=== PATIENT | male | born 1995 | race Caucasian/White ===

== ENCOUNTER 2017-03-23 15:18 | Emergency (ER) | payer MEDICAID ==
--- NOTE | 2017-03-23 15:38 | ER Document Report ---
ED Psych Disorder / Suicide - General Chief Complaint: Psych Problem Stated Complaint: SUICIDAL IDEATION Time Seen by Provider: 03/23/17 15:38 Notes: This is a 21-year-old male comes in by EMS at the request of Police Department for evaluation of self-harm. Patient states that he gets angry. Gets in arguments with his mom. Wants to harm himself at times. Has cut himself in the past. States that the arguments with his mother is something that he is always dealt with. Patient is unemployed. Lives at home with his mother. Has a girlfriend. Not on any medications. Smokes marijuana on a regular basis. Denies any alcohol or other drug abuse. Denies any harm to himself today. Does not endorse s.i. or h.i. TRAVEL OUTSIDE OF THE [place] IN LAST 30 DAYS: No - HPI Patient complains to provider of: Agitated, Self injury. No: Suicidal ideation , Suicidal plan, Suicidal attempt Onset: This afternoon Onset was: Gradual Quality of pain: No pain Severity: Mild Pain Level: 0 Suicide Risk Factors: Depressed - Related Data Allergies/Adverse Reactions: No Known Allergies Allergy (Verified 03/23/17 15:32) Home Medications: Current Home Medications No Home Medications 03/23/17 [History] Past Medical History - General Information source: Patient - Social History Smoking Status: Never Smoker Frequency of alcohol use: None Drug Abuse: Marijuana Lives with: Family Family History: Reviewed & Not Pertinent, Malignancy Psychiatric Medical History: Reports: Hx Attention Deficit Hyperactivity Disorder, Hx Bipolar Disorder - Immunizations Immunizations up to date: Yes Hx Diphtheria, Pertussis, Tetanus Vaccination: Yes Review of Systems - Review of Systems Constitutional: No symptoms reported EENT: No symptoms reported Cardiovascular: No symptoms reported Respiratory: No symptoms reported Gastrointestinal: No symptoms reported Genitourinary: No symptoms reported Male Genitourinary: No symptoms reported Musculoskeletal: No symptoms reported Skin: No symptoms reported Hematologic/Lymphatic: No symptoms reported Neurological/Psychological: No symptoms reported Physical Exam - Vital signs Vitals: Temp Pulse Resp BP Pulse Ox 99.2 F 58 L 16 124/66 97 03/23/17 15:24 03/23/17 15:24 03/23/17 15:24 03/23/17 15:24 03/23/17 15:24 Interpretation: Normal - General General appearance: Appears well, Alert - HEENT Head: Normocephalic, Atraumatic Eyes: Normal Pupils: PERRL - Respiratory Respiratory status: No respiratory distress Chest status: Nontender Breath sounds: Normal Chest palpation: Normal - Cardiovascular Rhythm: Regular Heart sounds: Normal auscultation Murmur: No - Abdominal Inspection: Normal Distension: No distension Bowel sounds: Normal Tenderness: Nontender Organomegaly: No organomegaly - Back Back: Normal, Nontender - Extremities General upper extremity: Normal inspection, Nontender, Normal color, Normal ROM , Normal temperature General lower extremity: Normal inspection, Nontender, Normal color, Normal ROM , Normal temperature, Normal weight bearing. No: Rajan's sign - Neurological Neuro grossly intact: Yes Cognition: Normal Orientation: AAOx4 Kendal Coma Scale Eye Opening: Spontaneous Kendal Coma Scale Verbal: Oriented Kendal Coma Scale Motor: Obeys Commands Kendal Coma Scale Total: 15 Speech: Normal Motor strength normal: LUE, RUE, LLE, RLE Sensory: Normal - Psychological Associated symptoms: Normal affect, Normal mood - Skin Skin Temperature: Warm Skin Moisture: Dry Skin Color: Normal Course - Re-evaluation Re-evalutation: 03/23/17 16:12 Have mental health evaluate patient. I do not think that the patient meets criteria for involuntary commitment at this time. 03/23/17 16:33 At the health team is seen patient. Note in the system. Do not think patient is a harm to himself at this time. We have provided him with a list of resources that are available to him. Patient seems comfortable with this plan. Will recommend close outpatient follow-up. - Vital Signs Vital signs: Temp Pulse Resp BP Pulse Ox 99.2 F 58 L 16 124/66 97 03/23/17 15:24 03/23/17 15:24 03/23/17 15:24 03/23/17 15:24 03/23/17 15:24 Discharge - Discharge Clinical Impression: Depression Qualifiers: Depression Type: unspecified Qualified Code(s): F32.9 - Major depressive disorder, single episode, unspecified Instructions: Depression ([facility]) Additional Instructions: Please note that you were seen today and you do not meet criteria to be placed on an involuntary hold. Resources information sheet was provided. It will be very important that you follow-up as an outpatient to have your issues addressed. In the event that you develop worsening depression, suicidal ideation, fear of harm to yourself or others you should return to the emergency department immediately. Referrals: Rony Smart [Outside] - Follow up in 1 week
--- NOTE | 2017-03-23 16:44 | PSYCHOLOGICAL NOTE ---
Psych Note - Psych Note Psych Note: Pt presents to the ED via EMS for complaints of SI/HI. Pt states that he has been getting into more fights with his mother recently. Pt states that before arrival pt's mother was yelling at the pt and the pt started having SI thoughts. Pt states that he only gets suicidal thoughts when "someone comes at him." Pt states denies a plan. Pt states that he has a hx of depression. Patient disclosed he came to [facility] ED by EMS because he got into a fight with his mother. He states that he needs help because "I have a lot of issues." Patient stated he has "anger and depression and depression that turns into anger." Continues to close that he normally smokes marijuana to cope and reports that it does work for him. Patient has a history of cutting and has the urge to cut "every now and again." He states that he only wants to cut when people get on his nerves and discloses that it easy to get him upset. Patient states that he has no outpatient provider and has no medications for mental health. Patient reports he is only been inpatient psychiatric for a court mandatory anger management and substance abuse class when he was a kid. He continued disclosed the only diagnosis he currently has is ADHD. Patient is alert and orientated to person, place, time and circumstance. Mood is euthymic with congruent affect. Clinician observed patient laying in hospital bed with his girlfriend smiling laughing doing something on the cell phone. Patient endorses passive suicidal ideation no plans. Patient denies homicidal ideation. Patient denies auditory visual hallucinations. Delusions are absent and behaviors congruent with intact reality based presentation i.e. organized, linear, rational thinking. Conversational speech was within normal rate, tone and prosody. Eye contact was well-maintained. Intellectual ability appears to be within the average range. Attention and concentration were good. Insight, judgment, impulse control are good. ADHD per history provided by patient Marijuana abuse per history provided by patient Impression\\plan: Patient is considered psychiatrically clear. Patient does not meet IVC criteria per [place] GS 122C. Patient denies homicidal ideation and endorses passive suicidal ideation and no plans. Delusions are absent behaviors congruent with intact reality based presentation i.e. organized, linear, rational thinking. Patient discloses long history of anger and depression with a diagnosis of ADHD however has no outpatient mental health provider and takes no psychiatric medications. Patient was unaware of local resources; clinician provided local resource list for mental health treatment. While patient discloses he is depressed he was observed smiling and laughing laying in the hospital bed with his girlfriend on the cell phone. Patient is recommended for outpatient mental health treatment. Dr. Nur was consulted and the care management of this patient; attending physician is agreement with augmentations and disposition.
[2017-03-23 16:50] VITALS: BP 127/78
== END 2017-03-23 16:50 | disposition home or self-care (01) ==
LOC: ER 15:18
DX: F32.9 Major depressive disorder, single episode, unspecified (principal); F12.10 Cannabis abuse, uncomplicated
CPT/HCPCS: 99285